=== PATIENT | female | born 1930 | race Caucasian/White ===

== ENCOUNTER 2016-10-26 08:46 | Observation (INO) | payer MEDICARE, OTHER ==
[~2016-10-26] VITALS: Ht 160 cm; Wt 78.6 kg
--- NOTE | ~2016-10-26 | DS ---
PATIENT'S NAME: CINDY PECK [facility] AGE: 85 Y [address] ROOM: [address] [address] LOCATION: GPCU ADMIT DATE: 10/26/2016 Discharge Summary DISCHARGE DATE: 10/27/2016 FAMILY PHYSICIAN: Alberto Fofana MD ATTENDING PHYSICIAN: Scott Aragon PRINCIPAL DIAGNOSES: 1. Hypertensive urgency. 2. Vertigo. 3. Paroxysmal atrial fibrillation. 4. CKD stage 3. HOSPITAL COURSE: This is an 85-year-old female, who lives in an assisted living facility presented to the emergency room with complaints of acute onset dizziness with the sensation of her room spinning around her head. The patient does have a history of vertigo except her last attack was about 10 years. The patient was also noted to have elevated blood pressure 200/100 at presentation. She was subsequently admitted for observation to manage her hypertensive urgency. The patient was given initially IV blood pressure medications and her home medications were resumed. The patient's blood pressure has responded nicely for that. The patient's blood pressure has been stable overnight and blood pressure currently is 104/56. The patient is currently asymptomatic. Did not complain of any dizziness or lightheadedness. No chest pain or shortness of breath. The patient was also initiated workup for a secondary hypertension. At this point, her blood pressure is already back to normal range. The patient will follow up with her primary care physician. Renal ultrasound duplex as well as urine metanephrines studies are pending. The patient will follow up with primary care physician. PHYSICAL EXAMINATION: VITAL SIGNS: Stable. GENERAL: The patient is awake, alert, and oriented x3, in no acute distress. HEART: S1, S2. Regular rate and rhythm. CHEST: Clear to auscultation bilaterally. ABDOMEN: Soft, nontender and nondistended. EXTREMITIES: Without edema. NEUROLOGIC: Nonfocal. MEDICATIONS: Per SEP. DISPOSITION: Back to assisted living facility and will follow up with primary care physician within a week. [facility] 85 Y [address] [address] [facility]ATION: [facility] ADMIT DATE: 10/26/2016 Discharge Summary DISCHARGE DATE: 10/27/2016 FAMILY PHYSICIAN: Alberto Fofana MD ATTENDING PHYSICIAN: Scott Aragon MD BG/modl /[id number] d: 10/28/16514 t: 10/30/16 1419, DISCHARGE SUMMARY
--- NOTE | ~2016-10-26 | HP ---
PATIENT'S NAME: NICK PECKTY Jas [facility] AGE: 85 Y [address] ROOM: [place] [address] LOCATION: GPCU ADMIT DATE: 10/26/2016 History & Physical DISCHARGE DATE: FAMILY PHYSICIAN: PHYSICIAN, UNKNOWN ATTENDING PHYSICIAN: JIM GLOVER DATE OF SERVICE: CHIEF COMPLAINT: Lightheadedness, which she describes as vertigo; and hard to control hypertension. HISTORY OF PRESENT ILLNESS: This is an 85-year-old female, who has a longstanding history of hypertension and hard to control, currently is on 3 medications. The patient lives in an assisted living facility and she states that the staff over there gives her the medication every single day without missing any dose. The story is that the patient woke up this morning with vertigo where she described as the room spinning around her head. Last time she felt like this was 10 years ago. The vertigo gets worse with movement, but she denies any headache, denies any blurry vision, denies any chest pain, denies any shortness of breath, denies any other symptoms. Because of this vertigo, the patient came to the emergency room for evaluation. At home, the patient usually checks her blood pressure twice a day and her numbers usually runs in the 150 to 180s in the systolic blood pressure. The patient says that she eats a healthy diet, is from the food that they prepare from the assisted living facility. She denies any increased salty intake. REVIEW OF SYSTEMS: As mentioned in the history of present illness. All other systems reviewed and negative except those mentioned in the history of present illness. PAST MEDICAL HISTORY: 1. Coronary artery disease status post drug-eluting stents placed about a year and half ago according to the patient in [facility]. She states she got one stent placed. Performed by Dr. Houston. 2. History of paroxysmal atrial fibrillation, on Xarelto. 3. Depression. 4. Hypertension. 5. 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 ALLERGIES: PENICILLIN, WHICH CAUSES RASH. HOME MEDICATIONS: PATIENT'S NAME: LIV CINDY Jas [facility] AGE: 85 Y [address] ROOM: [place] [address] LOCATION: GPCU ADMIT DATE: 10/26/2016 History & Physical DISCHARGE DATE: FAMILY PHYSICIAN: PHYSICIAN, UNKNOWN ATTENDING PHYSICIAN: JIM GLOVER 1. Tylenol 650 mg p.o. every 4 hours p.r.n. for pain or fever. 2. Tylenol 650 mg p.o. b.i.d. 3. Aspirin 81 mg p.o. daily. 4. Calcium carbonate and vitamin D3, 600 mg p.o. daily. 5. Vitamin D3, 2000 units every day. 6. Hydrochlorothiazide 25 mg p.o. daily. 7. Labetalol 200 mg p.o. b.i.d. 8. Losartan 100 mg p.o. daily. 9. Magnesium hydroxide 30 mL p.o. every day p.r.n. for constipation. 10. Nitroglycerin 0.4 mg sublingual every 5 minutes p.r.n. for chest pain. 11. Nortriptyline 50 mg p.o. every night at bedtime. 12. Olanzapine 2.5 mg p.o. every night at bedtime. 13. Prednisone 3 mg p.o. daily. She takes this for rheumatoid arthritis. 14. Xarelto 15 mg p.o. every night at bedtime. 15. Simvastatin 10 mg p.o. daily at bedtime. 16. Ursodiol 250 mg p.o. t.i.d. SOCIAL HISTORY: The patient is a former cigarette smoker, she quit in 1994, she used to smoke about half pack per day for 30 years. She is a social alcohol drinker. She denies any alcohol use disorder. She denies any illegal drug use. FAMILY HISTORY: Father from some kind of heart problem that she could not remember at advanced age. Mother also from heart problem, from a cause that the patient could not remember also at advanced age. PAST SURGICAL HISTORY: 1. Status post cholecystectomy. 2. Status post appendectomy. 3. Status post left hip surgery in the past. 4. Status post right shoulder surgery in the past. 5. Status post drug-eluting stent x1 to the heart a year and half ago. PHYSICAL EXAMINATION: VITAL SIGNS: At the time of my dictation; temperature 98, respirations 13, blood pressure 180/111, heart rate 62, and saturation 98% on room air. GENERAL APPEARANCE: Alert and oriented x3. In no acute distress. HEENT: Pupils equally round and reactive to light. Extraocular muscles are intact. Anicteric sclerae. Nasal turbinates are normal bilaterally. Moist oral mucosa. NECK: No JVD. CARDIOVASCULAR: Regular rate and rhythm. No murmur. No rubs. No gallops. RESPIRATORY: Some bibasilar crackles. Otherwise, clear to auscultation. ABDOMEN: Obese, soft, nontender, nondistended, normal bowel sounds, no PATIENT'S NAME: CINDY PECK [facility] AGE: 85 Y [address] ROOM: [address] [address] [facility]ATION: [facility] ADMIT DATE: 10/26/2016 History & Physical DISCHARGE DATE: FAMILY PHYSICIAN: PHYSICIAN, UNKNOWN ATTENDING PHYSICIAN: JIM GLOVER hepatosplenomegaly. EXTREMITIES: No edema in upper or lower extremities. NEUROLOGIC: Grossly nonfocal. LABORATORY DATA: Troponin less than 0.04. ProBNP 534. CPK 39. White blood cells 7.5, hemoglobin 9.5, hematocrit 31.4, MCV 91, and platelets 211. Glucose 98, BUN 30, creatinine 1.4, sodium 143, potassium 4.0, chloride 110, CO2 of 28, calcium 9.4, total protein 6.8, albumin 3.7, AST 8, ALT 18, alkaline phosphatase 63, total bilirubin 0.4, GFR 36, magnesium 1.9, INR 1.07, and CK- MB 0.8. IMAGING STUDY: 1. Chest x-ray on admission showed no evidence of acute cardiopulmonary disease. 2. CT of the head without contrast showed no acute intracranial pathology. Generalized atrophic changes. No skull fracture. 3. EKG on admission, the first one at 09:17 a.m., showed sinus rhythm, heart rate of [address] depression in anteroseptal leads. A repeat EKG at 10:18 a.m., showed a sinus rhythm, also with PAC, heart rate in the 50, ST depression in the anteroseptal leads has already resolved. EMERGENCY ROOM COURSE: In the emergency room, the patient received nitroglycerin drip, however, her heart rate went down from 70 to the 50s, therefore it was stopped. Nitroglycerin also gave the patient some headache. Therefore, the patient was given hydralazine 2 doses of 10 mg at a different time. ASSESSMENT AND PLAN: 1. Regarding her hypertensive urgency, the patient has been having this hypertension for a while. Therefore, per guideline, the goal would be lower the blood pressure, no more than 25% in the next 24 hours. Currently, there is no end-organ damage. She is asymptomatic right now. She denies any dizziness. EKG is normal. No chest pain. Blood work unremarkable except for chronic kidney disease stage III, around her baseline. I will check her blood pressure and heart rate every 2 hours and record in [facility], and use IV hydralazine 10 mg q.2 hours p.r.n. for systolic blood pressure more than 180 and use IV hydralazine p.r.n. 5 mg q.2 hours p.r.n. for systolic blood pressure more than 160. The goal should be around 150 to 160 in the next 24 hours. This is the ideal range. I will continue her home medication. She takes 3 medications. I will increase the hydrochlorothiazide to 50 mg instead of the 25 mg p.o. daily. Continue the other 2 medications including the labetalol and also losartan. I will do some workup for the secondary cause of the resistant hypertension given that she is on 3 medications, still quite PATIENT'S NAME: CINDY PECK [facility] AGE: 85 Y [address] ROOM: [place] [address] LOCATION: [facility] ADMIT DATE: 10/26/2016 History & Physical DISCHARGE DATE: FAMILY PHYSICIAN: PHYSICIAN, UNKNOWN ATTENDING PHYSICIAN: JIM GLOVER hypertensive. I will be checking a duplex ultrasound of the renal artery to rule out renal artery stenosis. I will also be checking a 24-hour urine, fractionated metanephrine and catecholamine, and serum fractionated metanephrine to screen for pheochromocytoma. Also will be checking a plasma aldosterone and renin ratio in the morning at 8 a.m. to rule out Conn syndrome. Continue cardiac diet. Fall precaution. Telemetry monitoring. Further plan depends on clinical course. Her home medication regimen could be increased and titrated as necessary. 2. Regarding her chronic kidney disease stage III to IV, she is around her baseline currently. Check another basic metabolic panel tomorrow morning. 3. Regarding her vertigo, I will give her meclizine 25 mg p.o. b.i.d. p.r.n. for vertigo. See how she responds. 4. Deep venous thrombosis prophylaxis. She is already on Xarelto. 5. Regarding her paroxysmal atrial fibrillation, continue Xarelto. Heart rate is already in the high 50s. Cardiac enzymes first set negative. There is no need to cycle. There is no chest pain. EKG not ischemic. Time spent in the care on the day of admission 35 minutes including chart review, interviewing the patient, examining the patient, addressing all the questions and concerns that the patient had, and going over the plan of care with the patient and nurses. MD LARON HUA/shanique /[id number] D: [id number] T: [id number] HISTORY & PHYSICAL
--- NOTE | ~2016-10-26 | ECHO ---
Transthoracic Echocardiography Report (TTE) Demographics Patient Name CINDY PECK Date of Study 10/27/2016 Patient Number [id number] Visit Number [id number] Date of 1930 Room Number G6320 Accession Number [id number] Gender Female Age 85 year(s) Referring Margo Herrera MD Well Flow Operator Shaw Lugo RDCS, Physician RVT Physician Interpreting Ciro Beltran Plant Pathology Teacher Physician Ruth MILLER Supervising Ordering Physician Margo Herrera MD, MD/P Nurse Stress Co Chairman Conclusions Contractility Score Summary Normal Left Ventricular contractility was noted. Summary The estimated left ventricular ejection fraction is 60%. Moderate concentric left ventricular hypertrophy. Diastolic assessment reveals Grade I diastolic dysfunction. Mild tricuspid regurgitation by color Doppler. There is moderate pulmonary hypertension. The pulmonary pressure (RVSP) is 44.94 mmHg. Procedure Type of Study TTE procedure:2D Echocardiogram. Procedure Date Date: 10/27/2016 Start: 08:42 AM Study Location: Inpatient Portable Technical Quality: Adequate visualization Indications:Dizziness and Hypertension. Additional Indications:EKG changes Appropriate Use Criteria: 9 Patient Status: Routine BP: 126/60 mmHg Allergies - No known allergies. M-Mode/2D Measurements LV Diastolic Dimension: 3.27 cm LV Systolic Dimension: 2.01 cm LV Septum Diastolic: 1.47 cm LV PW Diastolic: 1.21 cm LA Dimension: 4.5 cm RV Diastolic Dimension: 3.64 cm LA volume: 56 ml LVOT: 2 cm RV Base: 3.28 cm LVOT VTI: 28.4 cm RV Mid: 3.05 cm LV Stroke volume: 89.18 ml TAPSE: 2.03 cm TDI-S': 14.6 cm/s Doppler Measurements AV Peak Velocity: 1.51 m/s MV Peak E-Wave: 0.75 m/s AV Peak Gradient: 9.12 mmHg MV Peak A-Wave: 1.2 m/s AV Mean Gradient: 5 mmHg MV E/A Ratio: 0.62 LVOT Peak Velocity: 1.26 m/s MV Deceleration Time: 461 msec TR Velocity:3.16 m/s PV Peak Velocity: 1.4 m/s TR Gradient:39.94 mmHg PV Peak Gradient: 7.84 mmHg Estimated RAP:5 mmHg Estimated PASP: 44.94 mmHg Estimated RVSP: 45 mmHg A' Septal Velocity: 0.1 m/s E' Septal Velocity: 0.06 m/s A' Lateral Velocity: 0.08 m/s E' Lateral Velocity: 0.05 m/s Findings Left Ventricle Moderate concentric left ventricular hypertrophy. Diastolic assessment reveals Grade I diastolic dysfunction. Right Ventricle Normal right ventricle structure and function. Left Atrium The left atrium is mildly to moderately dilated by LA volume index measurement. Right Atrium Normal right atrial size. Redundant interatrial septum. Mitral Valve Trivial mitral regurgitation by color Doppler. Mild thickening of the mitral valve leaflets. Aortic Valve Normal aortic valve structure and function. Tricuspid Valve Mild tricuspid regurgitation by color Doppler. There is moderate pulmonary hypertension. The pulmonary pressure (RVSP) is 44.94 mmHg. Pulmonic Valve Normal pulmonic valve structure and function. Pericardial Effusion No evidence of pericardial effusion. Miscellaneous Visualized portions of the aortic root and ascending aorta appear normal in size. Pleural Effusion No evidence of pleural effusion. Contractility Score LV regional wall motion:(0-Non visualized 1-Normal 2-Hypokinesis 3-Akinesis 4-Dyskinesis 5-Aneurysm) Signature dtt: Matt Tanner dtd: 10/27/16 0842 Physician Self Edit
--- NOTE | ~2016-10-26 | CON ---
PATIENT'S NAME: CINDY PECK [facility] AGE: 85 Y [address] ROOM: [address] [place], [place] [address] LOCATION: GPCU ADMIT DATE: 10/26/2016 Consultation DISCHARGE DATE: 10/27/2016 FAMILY PHYSICIAN: Alberto Fofana MD ATTENDING PHYSICIAN: Scott Aragon DATE OF CONSULTATION: 10/27/2016 REFERRING PHYSICIAN: Matt Tanner MD REASON FOR CARDIOLOGY CONSULT: Resistant hypertension. HISTORY OF PRESENT ILLNESS: This is an 85-year-old female of Dr. Christos Fofana as her primary care provider. She resides at the [facility] and awoke the morning of 10/26/2016 with complaints of dizziness and "spinning." She had no other symptoms during her spinning episode. She denies chest pain, shortness of breath, dyspnea on exertion, palpitations, nausea, and vomiting. Assessment of her vital signs at the [facility] showed overt hypertension, and she was transferred to the emergency department for further evaluation. The emergency department found her to have a systolic blood pressure in the 200s. She was subsequently started on clonidine and hydralazine. She normally manages her hypertension poorly at home with Cozaar, hydrochlorothiazide, and labetalol. She states her blood pressures normally run between 150 and 180. She has a previous history, which includes coronary artery disease with a bare-metal stent placed to her RCA in 2014 and is currently taking aspirin and statin with no complaints of angina. She also has a history of paroxysmal atrial fibrillation, for which she is anticoagulated with Xarelto and is currently in a sinus rhythm on her monitoring manager during this consultation. She is currently resting comfortably in bed with no complaints and states she feels "fine." She appears to be in no acute distress at this time. PAST MEDICAL HISTORY: 1. Coronary artery disease with coronary artery stenting with a bare-metal stent to her RCA. This was placed [place] [address] Knott at [facility]. She states she has not followed up with a hearing aid mechanic since her stent placement. 2. Paroxysmal atrial fibrillation with long-term anticoagulation with Xarelto. 3. Hypertension. 4. Chronic kidney disease. 5. Depression. FAMILY HISTORY: PATIENT'S NAME: LIV [facility] AGE: 85 Y [address] ROOM: [address] [place], [place] [address] LOCATION: GPCU ADMIT DATE: 10/26/2016 Consultation DISCHARGE DATE: 10/27/2016 FAMILY PHYSICIAN: Alberto Fofana MD ATTENDING PHYSICIAN: Scott Aragon She states that her father had heart diagnosis but is not sure what it actually was. Her mother also had a heart disease, but she is unsure of the specific diagnosis. SOCIAL HISTORY: The patient is a former cigarette smoker. She smoked half a pack per day for a total of 30 years and quit smoking in 1994. She does admit to alcohol use on a social basis. She denies illicit drug use. CURRENT MEDICATIONS: 1. Actigall 300 mg p.o. 3 times daily. 2. Aspirin 81 mg p.o. daily. 3. Catapres 0.2 mg p.o. twice daily. 4. Deltasone 3 mg p.o. daily. 5. Hydrochlorothiazide 50 mg p.o. daily. 6. Pamelor 50 mg p.o. daily in the evening. 7. Labetalol 200 mg p.o. twice daily. 8. Tylenol Extra Strength 1000 mg p.o. 3 times daily. 9. Xarelto 15 mg p.o. daily in the evening. 10. Zocor 10 mg p.o. daily in the evening. 11. Zyprexa 2.5 mg p.o. daily in the evening. MEDICATION ALLERGIES: Penicillin causing rash. REVIEW OF SYSTEMS: Pertinent positive review of systems listed in the HPI, and all other review of systems evaluated and negative. DIAGNOSTICS: CMS evaluation shows sodium of 142, potassium 4.6, BUN of 29, creatinine 1.6, glucose of 104. Cardiac enzyme evaluation shows a CPK of 36, CK-MB of 0.8, and troponin I of less than 0.04. She has a proBNP of 534. Hemoglobin and hematocrit of 9.5 and 31.4 respectively. Echocardiogram shows an estimated left ventricular ejection fraction of 60% with a grade 1 diastolic dysfunction. She has mild tricuspid regurgitation and moderate pulmonary hypertension with an RVSP of 44.94 mmHg. PHYSICAL EXAMINATION: VITAL SIGNS: Temperature 97.9, pulse 62, respirations 21, blood pressure 129/60, O2 saturation 93% on room air. The patient weighs 78.6 kg. SKIN: [place], warm, and dry. EYES: Sclerae clear. No xanthelasmas. ENT: Oral mucosa is pink and moist. No jugular venous distention noted. PATIENT'S NAME: CINDY PECK [facility] AGE: 85 Y [address] ROOM: [place] [address] LOCATION: GPCU ADMIT DATE: 10/26/2016 Consultation DISCHARGE DATE: 10/27/2016 FAMILY PHYSICIAN: Alberto Fofana MD ATTENDING PHYSICIAN: Scott Aragon Does have the presence of bilateral carotid bruits. CHEST: Respirations are even and unlabored. LUNGS: Clear to auscultation. HEART: Regular rate and rhythm. Normal S1, S2. No murmurs, rubs, or gallops. ABDOMEN: Soft, nontender. MUSCULOSKELETAL: Gait is normal. EXTREMITIES: Peripheral pulses palpable. No clubbing, cyanosis, or edema. There is also no presence of femoral bruits. PSYCH: Alert and oriented. Mood and affect are appropriate. IMPRESSION AND PLAN: Per Dr. Tanner: 1. Coronary artery disease of the [place] artery without angina. She has a history of a bare-metal stent to the RCA in 2015, and her cardiac enzymes are currently negative as well as her EKG being negative for any acute ST changes suggestive of acute coronary ischemia. She is currently on guideline-directed medical therapy, and we will continue that. 2. Hypertensive urgency with a baseline resistant hypertension, currently resolved with her clonidine and hydralazine regimen. Her echocardiogram appears stable. She appears in a stable condition to be discharged if necessary today and follow up closely with her primary care provider as well as reestablishing care with her previous cardiology provider. 3. Chronic kidney disease. 4. Vertigo has currently resolved with meclizine. Thank you for this consult. Thank you for allowing [facility] to interact in the care of the patient. CORBY LAU APRN FOR [employer]-MD JENNI CARMONA/shanique /[id number] d: 10/27/16 2238 t: 11/01/16 1048, CONSULTATION REPORT
--- NOTE | ~2016-10-26 | ER ---
PATIENT'S NAME: NICK PECKTY Jas [facility] AGE: 85 Y [address] ROOM: [place] [address] LOCATION: GPCU ADMIT DATE: 10/26/2016 ER/Outpatient Report DISCHARGE DATE: FAMILY PHYSICIAN: PHYSICIAN, UNKNOWN ATTENDING PHYSICIAN: JIM GLOVER Time of Arrival: 0846 hours. Time of Evaluation: 0920 hours. IDENTIFICATION: An 85-year-old female. CHIEF COMPLAINT: Blood pressure problems. HISTORY OF PRESENT ILLNESS: The patient is an 85-year-old female, who comes from an assisted living facility complaining of weakness and vertigo. She said that she woke up this morning and everything was spinning. She has felt dizzy and lightheaded but more of spinning sensation. Rosalinda Alicia noted that her blood pressure was elevated at 199/75, so she was sent to [facility] by EMS. ALLERGIES: PENICILLIN. CURRENT MEDICATIONS: 1. Aspirin 81 mg daily. 2. Losartan 100 mg daily. 3. Calcium 600 mg with vitamin D daily. 4. Vitamin D 2000 International Units daily. 5. Prednisone 3 mg daily. 6. Xarelto 15 mg at h.s. 7. Hydrochlorothiazide 25 mg in the morning. 8. Ursodiol 250 mg t.i.d. 9. Tylenol 650 mg b.i.d. 10. Simvastatin 10 mg at h.s. 11. Nortriptyline 50 mg at h.s. 12. Zyprexa 2.5 mg at h.s. 13. Labetalol 200 mg b.i.d., hold if heart rate less than 55. 14. P.r.n. medications:. a. Tylenol. b. Milk of magnesia. c. Nitrostat. MEDICAL PROBLEMS: [facility] 85 [facility] [address] ROOM: [place] [address] LOCATION: GPCU ADMIT DATE: 10/26/2016 ER/Outpatient Report DISCHARGE DATE: FAMILY PHYSICIAN: PHYSICIAN, UNKNOWN ATTENDING PHYSICIAN: JIM GLOVER Hypertension, coronary artery disease, paroxysmal atrial fibrillation, primary sclerosing cholangitis, polymyalgia rheumatica, chronic iron deficiency anemia, hyperlipidemia, osteopenia, chronic kidney disease. PRIOR SURGERIES: Liver biopsy, stent placement, left total hip replacement, shoulder surgery, appendectomy, cholecystectomy, and breast biopsy. SOCIAL HISTORY: The patient lives at [facility]. Tobacco use, denies. Alcohol use, denies. Drug use, denies. FAMILY HISTORY: Mother from Parkinson's disease. Father had heart disease at a young age. REVIEW OF SYSTEMS: All systems were reviewed and negative other than what is noted in the HPI, particularly the patient denies any headache. She has no chest pain. No cough or shortness of breath. PHYSICAL EXAMINATION: VITAL SIGNS: Height 5 feet 3 inches, weight 78.6 kg, blood pressure 222/94, pulse 54, respirations 18, temperature 98.6, and saturations 95%. GENERAL: An 85-year-old female, in no acute distress. HEENT: Head: Normocephalic, atraumatic. Pupils equal, and reactive to light and accommodation. Extraocular movements intact. Nose: Mucosa pink. No lesions. Mouth: No lesions. Pharynx benign. NECK: Supple. No lymphadenopathy. LUNGS: Clear to auscultation. HEART: Sinus bradycardia. ABDOMEN: Soft, nondistended, nontender. SKIN: Bone Gap, warm, and dry. No lesions or rashes noted. NEURO: No focal deficit. No lower extremity edema. EMERGENCY DEPARTMENT COURSE: An IV was initiated. LABORATORY DATA AND X-RAYS: Sodium 143, potassium 4.0, chloride 110, CO2 of 28, BUN 30, creatinine 1.4, blood sugar 98. Liver enzymes normal. Magnesium 1.9. CPK 39, CK-MB 0.8, troponin I less than 0.040, ProBNP elevated at 534. INR 1.07. Hemoglobin 9.5, hematocrit 31.4, platelets 211, white count 7.5, hemoglobin was 9.6 in January 2016 so it is stable. PATIENT'S NAME: [facility] CINDY [facility] AGE: 85 Y [address] ROOM: [id number] [place], [place] [address] [facility] ADMIT DATE: 10/26/2016 ER/Outpatient Report DISCHARGE DATE: FAMILY PHYSICIAN: PHYSICIAN, UNKNOWN ATTENDING PHYSICIAN: JIM GLOVER EKG at 9:17, sinus bradycardia at [address] depression noted in V2 to V4. Repeat EKG at 10:18, sinus bradycardia at [address] depression in V2 to V3 has improved compared to earlier EKG. The patient does have a POLST form. Do not resuscitate. Limited interventions, and the patient is competent to make her own decisions. One- view chest x-ray, no acute process. Left basilar scarring, stable, pending Radiology over-read. Head CT without contrast, no acute findings. Pending Radiology over-read. IMPRESSION: 1. Vertigo. 2. Hypertensive urgency. 3. Bradycardia. 4. Ischemic EKG changes. 5. Chronic kidney disease, creatinine of 1.4. PLAN: In the emergency room, an IV had been initiated. The patient was started on a nitro drip per protocol to treat her blood pressure. The EKG changes improved, the blood pressure did not change, and her heart rate decreased to 46. The nitro drip was discontinued. Hydralazine 10 mg IV was given x2 with improvement of her blood pressure. She remained asymptomatic throughout this time with no chest pain, no shortness of breath, blood pressure improved to 181/67, 158/80, and she was admitted by Dr. Glover, who evaluated her in the emergency room, and as a nitro drip was discontinued, her heart rate improved back to the 50s. TOMY GRACE MD CAR/modl /[id number] d: 10/27/160 t: 10/27/16 0800, OUTPATIENT REPORT
[~2016-10-26 08:46] MED LIST changes: -HYDRODIURIL25 MG PO; -MECLIZINE HCL25 MG PO; -NORTRIPTYLINE H50 MG PO; -NORVASC10 MG PO; -PREDNISONE1 MG PO
[2016-10-26 09:48] LABS: BASOPHIL % 0.5 %; EOSINOPHIL # 0.3 K/uL (0.0-0.5); EOSINOPHIL % 3.3 %; HEMATOCRIT 31.4 % (30.0-46.0); HEMOGLOBIN 9.5 g/dL (10.0-15.0); IMMATURE GRANULOCYTE % 0.1 %; LYMPHOCYTE # 0.8 K/uL (0.8-4.0); LYMPHOCYTE % 10.8 %; MCH 27.5 pg (27.0-34.0); MCHC 30.3 gm/dL (32.0-36.5); MONOCYTE # 0.6 K/uL (0.0-1.0); MONOCYTE % 7.5 %; NEUTROPHIL # (ANC) 5.8 K/uL (1.8-7.8); NEUTROPHIL % 77.8 %; NRBC % 0 /100WBC (0-0.00); PLATELET COUNT 211 K/uL (150-450); RBC 3.45 M/uL (3.00-5.00); RDW-CV 15.3 % (11.9-14.6); WBC 7.5 K/uL (4.0-11.0)
[2016-10-26 09:58] LABS: INR - (THERAPEUTIC) 1.07 (0.92-1.07); PROTIME 11.2 SECONDS (9.8-11.4)
[2016-10-26 10:04] LABS: ALBUMIN 3.7 gm/dL (3.5-5.0); CALCIUM 9.4 mg/dL (8.5-10.5); CREATININE 1.4 mg/dL (0.5-1.1); TOTAL BILIRUBIN 0.4 mg/dL (0.0-1.5); TOTAL PROTEIN 6.8 g/dL (6.0-8.4)
[2016-10-26 10:07] LABS: CPK 39 IU/L (21-215); MAGNESIUM 1.9 mg/dL (1.8-2.6)
[2016-10-26] MEDS ORDERED: HYDRODIURIL25 MG PO (14:18)
[2016-10-26] MEDS ORDERED: TYLENOL325 MG PO (14:19)
[2016-10-26] MEDS ORDERED: NORTRIPTYLINE H50 MG PO (14:20)
[2016-10-26] MEDS ORDERED: PREDNISONE1 MG PO (14:22)
--- NOTE | 2016-10-26 16:38 | NUR ---
Patient is 85 yo female admitted from the ER. is a resident at the [facility]. ambulance was called for patient dizziness this am. patient has hx of HTN and AFib and dizziness. IV is infusing in right hand without erythema or edema noted at site. patient denies c/o at this time except headache, states she was given nitro in ER. does c/o dizziness. 16 Fr Stroud is inserted with some difficulty by AMISHA Wellington with assist. pt is very excoriated in her inner perineal area, education is given as documented. patient denies questions at this time. pneumatics are on bilat calves. patient call light is Modumetal reach. Report is given to AMISHA Wellington.
--- NOTE | 2016-10-26 19:51 | NUR ---
Significant Event: A/O x3, cooperative with cares. SBPs 200s, doctor is aware; HRs 50-70s, on room air. Hydralazine 10 mg given at 1604 for SBP 206. C/O headache; 2 mg of IV morphine given at 1605 with mild relief noted. Up to BS with assist of 2; patient c/o feeling dizzy et if room was spinning. Stroud placed at 1630; draining light yellow urine. Follow up: NPO after midnight for renal ultrasound. 24 hour urine collection started at 1630 for special urine testing; complete at 1630 tomorrow.
--- NOTE | 2016-10-27 04:54 | NUR ---
Significant event: A/O x 3. recieved orders for po clonidine, IV enalaprilat and increased doses of hydralazine. SBP are now in the low 100's. There is also an order for a cardiology consult, echo and ekg for this am. Stroud is intact with 850ml of UOP.
[2016-10-27 08:22] LABS: ANION GAP 12.6 (10.0-19.0); CALCIUM 9.2 mg/dL (8.5-10.5); CREATININE 1.6 mg/dL (0.5-1.1); POTASSIUM 4.6 mMol/L (3.7-5.1)
[2016-10-27 08:32] LABS: CPK 36 IU/L (21-215)
--- NOTE | 2016-10-27 12:39 | NUR ---
Introduced self and role of care management to patient. She lives at [facility]. She states that she is able to do all her own ADL." The staff do help her put on and takae off her dorian hose. She plans on returning to the [facility] on discharge. I did call and speak with Malissa to update her that patient has discharge orders for today. They will pick her up this afternoon.
[2016-10-27] MEDS ORDERED: MECLIZINE HCL25 MG PO (14:37)
--- NOTE | 2016-10-27 20:37 | NUR ---
Significant Event: A/O x3, cooperative with cares. VSS, SBPs 100s-120s, HRs 50-60s, on room air. No c/o pain or dizziness. Echo et renal artery duplex today; no report as of this time. Maximus blackman'd; up to bathroom with assist of 1. Dismissal instructions given to patient. Dismissed to front lobby per w/c accompanied by assisted living staff. Follow up:
== END 2016-10-27 14:45 | disposition disaster alternative care site (69) ==
LOC: GMED 08:46 → GPCU 14:01
PROVIDERS: Family Medicine; ADMIT Internal Medicine
DX: I16.0 Hypertensive urgency (principal); I12.9 Hypertensive chronic kidney disease with stage 1 through stage 4 chronic kidney disease, or unspecified chronic kidney disease; N18.4 Chronic kidney disease, stage 4 (severe); R42 Dizziness and giddiness; I48.0 Paroxysmal atrial fibrillation; I25.10 Atherosclerotic heart disease of native coronary artery without angina pectoris; Z87.891 Personal history of nicotine dependence; Z88.0 Allergy status to penicillin; Z90.49 Acquired absence of other specified parts of digestive tract; Z98.890 Other specified postprocedural states; Z79.82 Long term (current) use of aspirin; Z79.51 Long term (current) use of inhaled steroids; Z79.899 Other long term (current) drug therapy
CPT/HCPCS: G0378; J0360; J2270; J2405; J3010; J7030

== ENCOUNTER → 2016-10-26 | Outpatient (CLI) | payer MEDICARE, OTHER ==
[~2016-10-26] MED LIST: APRESOLINE50 MG PO; ARICEPT5 MG PO; ASPIR 8181 MG PO; CALCIUM 600 +1 EAC3 PO; COLACE100 MG PO; COZAAR100 MG PO; DELTASONE1 MG PO; DEPAKOTE DELAY500 MG PO; DULCOLAX10 MG R; EFFEXOR XR 3737.5 MG PO; FEOSOL325 MG PO; FISH OIL1000 MG PO; HYDROCHLOROTHIA25 MG PO; HYDRODIURIL25 MG PO; KEFLEX500 MG PO; LABETALOL HCL200 MG PO; MECLIZINE HCL25 MG PO; MEGACE SUSP40 MG/ML PO; MILK OF MA400 MG/5 M PO; MIRALAX17 GM PO; NAMENDA5 MG PO; NITROSTAT0.4 MG SL; NORTRIPTYLINE H50 MG PO; NORVASC10 MG PO; NORVASC5 MG PO; PREDNISONE1 MG PO; SENNA S TABLET1 EACH PO; SENOKOT S (S1 TABLET PO; TYLENOL325 MG PO; URSODIOL250 MG PO; VITAMIN D2000 UNIT PO; XARELTO15 MG PO; ZOCOR10 M1 PO; ZOFRAN4 MG PO; ZYPREXA2.5 MG PO; [UNRECOGNIZED DRUG - OTHER] PO
== END | disposition disaster alternative care site (69) ==
LOC: GAMB 08:23
DX: R53.1 Weakness (principal); I10 Essential (primary) hypertension; R42 Dizziness and giddiness
CPT/HCPCS: A0425; A0427

== ENCOUNTER 2016-10-28 07:03 | Inpatient (IN) | payer MEDICARE, OTHER ==
[~2016-10-28] VITALS: Ht 160 cm; Wt 81.2 kg
--- NOTE | ~2016-10-28 | ER ---
PATIENT'S NAME: [facility] CINDY Jas [facility] AGE: 85 Y [address] ROOM: [place] [address] LOCATION: [facility] ADMIT DATE: 10/28/2016 ER/Outpatient Report DISCHARGE DATE: FAMILY PHYSICIAN: Alberto Fofana MD ATTENDING PHYSICIAN: Edd Rome Time of Arrival: Admission date and time documented on the medical record. Time of Evaluation: I saw the patient at 0715 hours. CHIEF COMPLAINT: Lightheadedness, dizziness, and weakness. HISTORY OF PRESENT ILLNESS: The patient is an 85-year-old female, who lives at [facility], was brought to the emergency room by paramedics via ambulance for evaluation. Her main complaint is lightheadedness, dizziness. She denies vertigo. Denies headache or eyes, ears, nose, throat, neck, or spine pain. No fall or trauma. She feels like she is okay when she is lying down, but when she sits up or changes positions, gets really lightheaded. Blood pressure is stable. The patient just got out of the hospital yesterday. She was hospitalized for hypertensive urgency and vertigo. She is on Antivert; was given Antivert just prior to transfer to the emergency department. The patient denies any chest pain, shortness of breath, or abdominal pain. No nausea, vomiting, diarrhea, urinary frequency or urgency, or dysuria. She is not having any joint/muscle swelling, redness, or pain or skin eruptions. No history of endocrine problems. She does have depression with some element of anxiety, but no psychosis. No neuro changes. HOME MEDICATIONS: See attached medication list. ALLERGIES: PENICILLIN. SOCIAL HISTORY: Nonsmoker, nondrinker. SIGNIFICANT PAST MEDICAL HISTORY: Atherosclerotic ischemic heart disease with coronary artery disease, diverticulosis, hemorrhoids, hypertension, vertigo, paroxysmal atrial fibrillation, chronic kidney disease, chronic anticoagulation with Xarelto, polymyalgia rheumatica, iron deficiency anemia, dyslipidemia, osteopenia, degenerative joint disease, degenerative osteoarthritis, primary sclerosing cholangitis, depression, and anxiety. PATIENT'S NAME: [facility] AGE: 85 Y [address] ROOM: [place] [address] LOCATION: ED ADMIT DATE: 10/28/2016 ER/Outpatient Report DISCHARGE DATE: FAMILY PHYSICIAN: Alberto Fofana MD ATTENDING PHYSICIAN: Edd Rome OPERATIONS: Breast biopsy, shoulder surgery, liver biopsy, colonoscopy, left total hip arthroplasty, appendectomy, and cholecystectomy. REVIEW OF SYSTEMS: All systems reviewed by me are negative with the exception of those discussed in the history of present illness. PHYSICAL EXAMINATION: VITAL SIGNS: Temperature 97.9, tympanic; pulse 60; respirations 16; blood pressure 121/56; and O2 saturation on room air is 91%. HEAD: Normocephalic. EYES, EARS, NOSE, AND THROAT: Clear. Mucous membranes are a little dry. NECK: No nuchal rigidity. No thyromegaly or cervical adenopathy. LUNGS: Clear. No rales, rhonchi, or wheezes. HEART: Regular. Pulses palpable. ABDOMEN: Soft, nondistended, nontender. Good bowel tones. No organomegaly or abnormal mass palpable. EXTREMITIES: Without peripheral edema, cyanosis, or deformity. NEUROVASCULAR: Intact. SKIN: Clear. No skin eruptions or rash. DIAGNOSTIC DATA: EKG showed sinus arrhythmia. No acute ST elevation or ischemic change. LABORATORY DATA: White count was 6900, 75 segs, 10 lymphs, 12 monos, 2 eos; hemoglobin was 9.1 with hematocrit 30.1; platelet count was 244,000. Sedimentation rate was 23. Protime was 12.9 with an INR of 1.23. Lactate was 1.3. CPK was 129, CK-MB was 2.9, troponin was 0.086. CRP was less than 0.29. TSH was 3.33. CMS was normal except for an elevated BUN of 45, elevated creatinine 3.5, low GFR at 12, procalcitonin was 0.11. EMERGENCY DEPARTMENT COURSE: I did start the patient on some IV normal saline fluids. IMPRESSION: 1. Txrbh-fj-bfbrcph kidney disease with a creatinine of 3.5, BUN of 45, GFR of 12. Her creatinine has elevated from 1.4 to 1.6 to 3.5 today. BUN has been running in the mid 30s, it is now 45. GFR has been running in the mid 30s to high 30s and now it has dropped down to 12. 2. Hypertension, controlled. 3. Paroxysmal atrial fibrillation with chronic anticoagulation using Xarelto. 4. Atherosclerotic ischemic heart disease with coronary artery disease. PATIENT'S NAME: CINDY PECK [facility] AGE: 85 Y [address] ROOM: [place] [address] LOCATION: [facility] ADMIT DATE: 10/28/2016 ER/Outpatient Report DISCHARGE DATE: FAMILY PHYSICIAN: Alberto Fofana MD ATTENDING PHYSICIAN: Edd Rome 5. Iron deficiency anemia. Hemoglobin 9.1. 6. Dyslipidemia. PLAN: Discussed the patient with Dr. Aragon, hospitalist. We will admit the patient to Med/Surg for further evaluation and treatment. Discussion ensued with the patient concerning my findings and recommendations, she understands. EDD ROME MD SDS/modl /[id number] d: 10/28/1608 t: 10/29/16 0617, OUTPATIENT REPORT
--- NOTE | ~2016-10-28 | HP ---
PATIENT'S NAME: CINDY PECK [facility] AGE: 85 Y [address] ROOM: [place] [address] LOCATION: [facility] ADMIT DATE: 10/28/2016 History & Physical DISCHARGE DATE: FAMILY PHYSICIAN: Alberto Fofana MD ATTENDING PHYSICIAN: JIM GLOVER DATE OF SERVICE: CHIEF COMPLAINT: Lightheadedness, and WES on CKD stage 3. HISTORY OF PRESENT ILLNESS: This is an 85-year-old female who was just discharged here from the hospital yesterday for hypertensive urgency and a sensation of vertigo. The patient was discharged yesterday back to correction. The patient was feeling well. The patient, however, states that for the last few days, she has been having poor appetite, and yesterday, when she went back home, she has not eaten or drunk much fluid. She also says that there might be some decreased urine output yesterday and today. No fall. She denies chest pain, shortness of breath, or headache. This morning, when she tried to get up from the bed, she felt lightheaded, but she did not fall. Because of the dizziness, the patient was brought here for evaluation. REVIEW OF SYSTEMS: As mentioned in the History of Present Illness. All other systems reviewed and negative except those mentioned in the History of Present Illness. PAST MEDICAL HISTORY: 1. CKD, stage 3. Baseline creatinine 1 to 1.3, and baseline GFR around 40s. 2. Hypertension. 3. Coronary artery disease, status post drug-eluting stent placed about a year and a half ago in [facility], according to the patient. 4. Depression. 5. History of paroxysmal atrial fibrillation, on Xarelto. ALLERGIES: PENICILLIN WHICH CAUSES RASH. HOME MEDICATIONS: 1. Ursodiol 250 mg p.o. t.i.d. 2. Tylenol 650 mg p.o. b.i.d. 3. Labetalol 200 mg p.o. b.i.d. 4. Simvastatin 10 mg p.o. every evening. 5. Nortriptyline 50 mg p.o. at bedtime. PATIENT'S NAME: CINDY PECK [facility] AGE: 85 Y [address] ROOM: [place] [id number] LOCATION: [facility] ADMIT DATE: 10/28/2016 History & Physical DISCHARGE DATE: FAMILY PHYSICIAN: Alberto Fofana MD ATTENDING PHYSICIAN: JIM GLOVER 6. Zyprexa 2.5 mg p.o. every night at bedtime. 7. Aspirin 81 mg p.o. daily. 8. Losartan 100 mg p.o. daily. 9. Calcium 600 mg p.o. daily supplement with vitamin D. 10. Vitamin D 2000 units p.o. daily. 11. Prednisone 4 mg p.o. daily. 12. Xarelto 15 mg p.o. at bedtime. 13. Hydrochlorothiazide 25 mg p.o. in the morning. 14. Nitroglycerin 0.4 mg sublingual every 5 minutes p.r.n. for chest pain. 15. Meclizine 25 mg p.o. every 8 hours p.r.n. for dizziness. 16. Tylenol 325 mg p.o. every 4 hours p.r.n. for pain or fever. SOCIAL HISTORY: The patient was a former cigarette smoker, she quit in 1994. She used to smoke about half a pack per day for 30 years. She is a social alcohol drinker. Denies any alcohol use disorder. She denies any illegal drug use. FAMILY HISTORY: Father from some kind of a heart problem that she could not remember. Mother also from some kind of heart problem, also from a cause that she could not remember. Both at advanced age. PAST SURGICAL HISTORY: 1. Status post cholecystectomy. 2. Status post appendectomy. 3. Status post left hip surgery in the past. 4. Status post right shoulder surgery in the past. 5. Status post drug-eluting stent x1 placed in the heart about a year and a half ago. PHYSICAL EXAMINATION: VITAL SIGNS: At the time of my dictation, temperature 97, heart rate 61, blood pressure 145/62, saturation 100% on room air, pain 0/10, and respirations 14. GENERAL APPEARANCE: Alert and oriented x3, in no acute distress. HEENT: Pupils are equally round and reactive to light. Extraocular muscles intact. Anicteric sclerae. Nasal turbinates are normal bilaterally. Moist oral mucosa. NECK: No JVD. CARDIOVASCULAR: Regular rate and rhythm. No murmur. No rubs. No gallops. RESPIRATORY: Some bibasilar crackles. Otherwise, clear. ABDOMEN: Obese, soft, nontender, and nondistended. Normal bowel sounds. No hepatosplenomegaly. EXTREMITIES: No edema in the upper or lower extremities. NEUROLOGICAL: Grossly nonfocal. PATIENT'S NAME: CINDY PECK [facility] AGE: 85 Y [address] ROOM: [place] [address] LOCATION: [facility] ADMIT DATE: 10/28/2016 History & Physical DISCHARGE DATE: FAMILY PHYSICIAN: Alberto Fofana MD ATTENDING PHYSICIAN: JIM GLOVER LABORATORY DATA: Lactic acid 1.3. CPK 129 and troponin 0.086. White blood cells 6.9, hemoglobin 9.1, hematocrit 30.1, MCV 92.3, and platelet 244. Glucose 96, BUN 45, creatinine 3.5, sodium 141, potassium 3.9, chloride 108, CO2 of 24, and calcium 8.7. Total protein 6.6. Albumin 3.6. AST 12, ALT 14, and alkaline phosphatase 61. Total bilirubin 0.3. GFR 12. Anion gap 12.9. ESR 23. INR 1.23. CK-MB 2.9. TSH 3.330. Procalcitonin 0.11. IMAGING STUDIES: EKG on admission showed heart rate of 56 with sinus arrhythmia and QRS 100, UT 135, and QTc 437. No ST elevation or depression. ASSESSMENT AND PLAN: 1. Regarding her acute kidney injury on chronic kidney disease, stage 3: Likely secondary to decreased oral intake in the setting of using losartan at home. We will hydrate her with IV normal saline bolus 2 L and then follow by 125 mL/hour. Place a Stroud catheter for urine output. Strict in's and out's and daily weights. Check urine electrolytes. I will not repeat kidney ultrasound because she just had ultrasound done yesterday, and it was unremarkable. Increase oral intake. Can have a cardiac diet. Further plan depends on clinical course. 2. Regarding her vertigo: I will start her on the meclizine 25 mg standing dose with 4 times a day. Further plan depends on clinical course. The patient does get relief with this medication. Likely, she also has benign positional paroxysmal vertigo. Also, could be from the dehydration from the orthostatic vital signs. 3. Regarding her coronary artery disease, status post drug-eluting stent placed in the past: No active issue. No chest pain. EKG not ischemic. Continue home medication. 4. Regarding her paroxysmal atrial fibrillation: Currently, in sinus rhythm. Continue Xarelto. 5. Regarding her hypertension: Obviously, in the setting of acute kidney injury on chronic kidney disease, we will hold off on the losartan. I will also stop the hydrochlorothiazide. We will give her IV hydralazine p.r.n., IV labetalol p.r.n., p.o. amlodipine 10 mg every morning, and p.o. hydralazine 10 mg 4 times a day and titrate as necessary. 6. Regarding her troponin elevation: No chest pain. EKG not ischemic. This is likely from the WES on CKD. Cycle cardiac enzymes every 6 hours. 7. Deep venous thrombosis prophylaxis: The patient will be on heparin subcu 3 times a day. Time spent in care on the day of admission is 30 minutes including chart review, interviewing the patient, examining the patient, addressing all the questions and concerns that the patient had, and going over the plan of care with the patient and the nurses. PATIENT'S NAME: CINDY PECK [facility] AGE: 85 Y [address] ROOM: [place] [address] LOCATION: [facility] ADMIT DATE: 10/28/2016 History & Physical DISCHARGE DATE: FAMILY PHYSICIAN: Alberto Fofana MD ATTENDING PHYSICIAN: JIM GLOVER JIM GLOVER MD CC/modl /[id number] D: 336 T: 232 HISTORY & PHYSICAL
--- NOTE | ~2016-10-28 | DS ---
PATIENT'S NAME: CINDY REYES [facility] AGE: 85 Y [address] ROOM: [address] [place] [address] [place] [facility] ADMIT DATE: 10/30/2016 Discharge Summary DISCHARGE DATE: 11/01/2016 FAMILY PHYSICIAN: Alberto Fofana MD ATTENDING PHYSICIAN: Scott Aragon ATTENDING PHYSICIAN ON THE DAY OF DISCHARGE: Dr. Talavera. CONSULTING PHYSICIAN: Dr. Philippe, Psychiatry. DISCHARGE DIAGNOSES: 1. Acute kidney injury, resolved. 2. Major depressive disorder, recurrent. 3. Hypertension. 4. Paroxysmal atrial fibrillation. 5. Hypokalemia, resolved. 6. Hypomagnesemia, replaced. DISCHARGE MEDICATIONS: 1. Acetaminophen 325 mg 2 tablets every 4 hours p.r.n. pain. 2. Acetaminophen 650 mg p.o. twice daily. 3. Norvasc 10 mg p.o. q.h.s., #30 given, no refills. 4. ASA 81 mg daily. 5. Simvastatin 10 mg p.o. q.h.s. 6. Labetalol 200 mg p.o. twice daily. 7. Nortriptyline 50 mg p.o. q.h.s. 8. Olanzapine 2.5 mg p.o. q.h.s. 9. Prednisone 3 mg p.o. daily. 10. Xarelto 15 mg p.o. q.h.s. 11. Calcium carbonate with vitamin D 1 tablet p.o. daily. 12. Ursodiol 250 mg p.o. t.i.d. 13. Nitrostat 0.4 mg sublingually every 5 minutes p.r.n. chest pain. 14. Vitamin D 2000 units p.o. daily. 15. Milk of mag 30 mL p.o. daily p.r.n. constipation. 16. Hydrochlorothiazide 25 mg p.o. daily. 17. Meclizine 25 mg p.o. q.8 h. p.r.n. dizziness. 18. Medications held are Cozaar 100 mg p.o. daily. HOSPITAL COURSE: Please refer to the admitting H and P for more detailed outline of the patient's presentation that was dictated by Dr. Aragon. The patient was admitted on 10/28/2016. She was placed on Med/Surg Unit. She was placed on fall precautions. Psychiatry was asked to consult given the patient's depression and loss of will to eat or drink. The patient was hydrated initially with normal saline and then followed with continuous IV PATIENT'S NAME: CINDY REYES [facility] AGE: 85 Y [address] ROOM: [place] [address] [place] [facility] ADMIT DATE: 10/30/2016 Discharge Summary DISCHARGE DATE: 11/01/2016 FAMILY PHYSICIAN: Alberto Fofana MD ATTENDING PHYSICIAN: Scott Aragon. She was continued on her Xarelto for her history of PAF. Given her WES, the losartan was held along with the hydrochlorothiazide. Norvasc was implemented. On 10/29/2016, the normal saline was discontinued and bicarb was initiated to help with her hydration status. Electrolytes were being monitored, meclizine was used initially to help with her vertigo, and was seen to improve as her kidney function improved and she received her hydration. Hydralazine was used to help manage her hypertension. The patient had had a Stroud catheter placed for accurate I's and O's and this was discontinued on 10/30/2016. The patient did have OT/PT follow her and work with her during her inpatient stay. The patient's metabolic acidosis resolved. She did receive some magnesium sulfate for a low magnesium of 1.5 and this was given on 10/31/2016, potassium did drop to 3.6, of which this was replaced with oral replacement. Ultimately, all things considered, the patient was cleared to be discharged medically on 11/01/2016. Her blood pressures during her hospitalization ranged from systolically 108 to a nice later reading of 205, but mostly settled in the 140s to 160s range. I did speak with Dr. Rosales on the day of discharge, she was willing to see the patient as early as next week, he will be calling the patient to make this arrangement with a time. I also spoke with Dr. Fofana who will graciously see the patient on Sunday, November 03, 2016 with a check of a BMP at that point to see how things are coming along and to also monitor her blood pressure. I also took time to call both her daughter Gloria Lmi and I discussed her discharge plan with her and also left a voicemail with her son Red. I visited with Care Management to make sure that PT/OT could be available for Mrs. Reyes in her assisted living situation and script was written for this. I recommend she follow up with fall precautions. The patient is being discharged back to the [facility] facility at [facility]. Discharge of this patient took greater than 35 minutes and included educating the patient, the patient's family, and collaborating with her primary care physician and our psychiatric colleagues concerning her case. MELODY SAUCEDA PA-C FOR MD JEFFRY BAL/shanique /[id number] CC: Alberto Fofana MD PATIENT'S NAME: CINDY REYES [facility] AGE: 85 Y [address] ROOM: [place] [address] [place] [facility] [place]MIT DATE: 10/30/2016 Discharge Summary DISCHARGE DATE: 11/01/2016 FAMILY PHYSICIAN: Alberto Fofana MD ATTENDING PHYSICIAN: Scott Aragon MD d: 11/02/16 0134 t: 11/20/16 1200, DISCHARGE SUMMARY
--- NOTE | ~2016-10-28 | HP ---
PATIENT'S NAME: CINDY PECK [facility] AGE: 85 Y [address] ROOM: [address]3214 [place], [place] [address] [place] [facility] [place]: 10[place] History & Physical DISCHARGE DATE: FAMILY PHYSICIAN: Alberto Fofana MD ATTENDING PHYSICIAN: JIM GLOVER DATE OF SERVICE: ADDENDUM: The patient seems depressed. The patient states that she does not want to eat and does not want to drink, and she wants to go back home to be with her . When asked who is her , I found out that her actually 2 years ago. The patient kept saying that she wants to go to be with her . I asked the patient if she has any ideation or thoughts about committing suicide or causing harm to herself, the patient replies "no," but the patient does want to go back and be where her is right now because she is tired of life, tired of being here alone, and tired of taking so many medications. She does feel very lonely and very depressed, and at one point, the patient did mention that she would like to be in the position where her is, and when asked her "you mean ," the patient says "yes." The patient has no desire to eat or drink because she is depressed. Given that the patient did make this suicidal ideation remark, I am going to put the patient on suicidal precaution, and consult Psychiatry for suicidal ideation. I have already spoken to the patient's son and daughter on the phone twice. The first time was to let her know about her mother's update and condition and kidney failure, and the second time was after the kidney function was checked again, which already showed improvement. Both son and daughter are aware that their mother is DNR/DNI, and said that her father 2 years ago, and she went in to severe depression. However, for the last year, she has been doing much better, but given that she lives alone here without many friends or without any family member, she is all alone here by herself. She is getting lonely. This is the reason why she is depressed. The plan will be a suicidal precaution and also psychiatric consult tomorrow. The patient's daughter and son are in agreement with the plan, and please have the psychiatrist to please call the patient's son and daughter to go over the evaluation plan and plan of care before making any changes to the medication. The patient's daughter is very concerned that if changing her antidepressant will cause change in mental status and cause delirium because when she was depressed last time, the patient went in to delirium and confusion when her antidepressant medication was changed. So please have the psychiatric call the patient's daughter and son before making any changes. PATIENT'S NAME: CINDY PECK [facility] AGE: 85 Y [address] ROOM: [place] [address] [place] [facility] [place]: 10[place]28/2016 History & Physical DISCHARGE DATE: FAMILY PHYSICIAN: Alberto Fofana MD ATTENDING PHYSICIAN: JIM GLOVER MD CC/modl /[id number] D: [id number] T: [id number] HISTORY & PHYSICAL
--- NOTE | ~2016-10-28 | CON ---
PATIENT'S NAME: TIA PECK [facility] AGE: 85 Y [address] ROOM: [id number] [place], [place] [address] LOCATION: [facility] ADMIT DATE: 10/28/2016 Consultation DISCHARGE DATE: FAMILY PHYSICIAN: Alberto Fofana MD ATTENDING PHYSICIAN: JIM GLOVER IDENTIFYING INFORMATION: Tia is an 85-year-old, white female, admitted to us yesterday with acute renal insufficiency. The medical issues are being evaluated. A Psych consult was obtained to assess for depression. CHIEF COMPLAINT: "I am doing okay, I guess." HISTORY OF PRESENT ILLNESS: Tia came across as a fairly animated, fully alert and oriented, good historian, and demonstrated full range of emotions. She talked about how she has struggled with depression since the of her two years ago. She sees Dr. Rosales, and currently takes Zyprexa 2.5 mg at bedtime. She has been living at a local Assisted Living Facility for the last one year, and enjoys being there. In terms of her recent symptoms, she feels that given the circumstances, that she is doing fairly okay. Frustrated about the medical issues that she is having, and the vertigo and the balance issues. She also hates "the fact that she has to be dependent upon other people, and cannot even clean herself," but understands that this is hopefully all temporary, and a lot of this should resolve once the medical issues get better as well. She states that she did have a bout of depression about 60 years ago, and that is when she remembers having ECTs. She was admitted to [facility] back then. After that, she did very well in terms of her mental health until two years ago, and that is when she lost her . She feels that Dr. Rosales has her on a regimen that is effective. She saw him about a month ago, and states that she has another appointment in the next few weeks as well. She denies any suicidal or homicidal ideations. Per the Staff, is calm and cooperative and animated; and no major behavioral concerns at this point as well. No elements of any psychosis. Some mild concerns with the cognition, but nothing was evident during the assessment. No manic symptomatology. No concerns around anxiety. The patient feels that before all this medical decompensations, that she was doing quite well. PSYCHIATRIC HISTORY: Outpatient treatment of depression. Once CBCTs and inpatient admission about 60 years ago. MEDICAL HISTORY: 1. Acute kidney insufficiency. PATIENT'S NAME: TIA PECK [facility] AGE: 85 Y [address] ROOM: [address] [place] [address] LOCATION: [facility] ADMIT DATE: 10/28/2016 Consultation DISCHARGE DATE: FAMILY PHYSICIAN: Alberto Fofana MD ATTENDING PHYSICIAN: JIM GLOVER 2. Hypertension. 3. Obesity. DRUG AND ALCOHOL HISTORY: She declines. PERSONAL AND SOCIAL HISTORY: Born and raised in [place]. She moved to [place] with her in 1957. passed on two years ago, and has been living at [facility] for the last one year and enjoys it. She has two children; son lives in [place] and daughter lives in [place]. She "feels like a burden," but understands that is not how they feel. MENTAL STATUS EXAMINATION: Alert and oriented, lying in her bed, animated with a lot of emotion and energy. Good eye contact. She enjoyed visiting. She talked about life in general, a good historian, and able to give a consistent and coherent account. She talked about life losses, especially the recent ones and how they have affected her, fairly rational and reasonable in what she had to say. Appropriate range of emotions at this time. No manic symptoms. No elements of any psychosis. She understands that she feels "low," and has been feeling low recently, but understands this is from the medical complications and the loss of function that she has temporarily witnessed and experienced. Attention and concentration were fair. Intelligent. Cognitive deficits were not seen. Working memory seemed to be intact. Judgment and insight are fair. DIAGNOSES: 1. Major depressive disorder, recurrent. 2. Acute renal insufficiency. 3. Obesity. 4. Hypertension. ASSESSMENT AND PLAN: The patient is fully alert and oriented. The current symptoms are likely triggered by the loss of function and the adjustment to the medical issues. Discussed the plan, and the patient does not want any medication adjustments at this time. She states that she has a followup appointment with Dr. Rosales, and once that she is out of the hospital and feeling baseline in regard to her physical health, we will better assess the psychiatric concerns. All of that seems fairly reasonable. No acute safety concerns. She may be discharged back to the Assisted Living from a psych standpoint when she is medically cleared. Please call with any specific concerns. PATIENT'S NAME: TIA PECK [facility] AGE: 85 Y [address] ROOM: [place] [address] LOCATION: [facility] ADMIT DATE: 10/28/2016 Consultation DISCHARGE DATE: FAMILY PHYSICIAN: Alberto Fofana MD ATTENDING PHYSICIAN: JIM GLOVER MD NELA [facility]IRCH[facility]/shanique /[id number] d: 10/29/162019 t: 10/30/16 1228, CONSULTATION REPORT
[~2016-10-28 07:03] MED LIST changes: -NORVASC10 MG PO
[2016-10-28 07:39] LABS: BASOPHIL % 0.4 %; EOSINOPHIL # 0.2 K/uL (0.0-0.5); EOSINOPHIL % 2.3 %; HEMATOCRIT 30.1 % (30.0-46.0); HEMOGLOBIN 9.1 g/dL (10.0-15.0); IMMATURE GRANULOCYTE % 0.6 %; LYMPHOCYTE # 0.7 K/uL (0.8-4.0); LYMPHOCYTE % 9.6 %; MCH 27.9 pg (27.0-34.0); MCHC 30.2 gm/dL (32.0-36.5); MCV 92.3 fl (83.0-98.0); MONOCYTE # 0.8 K/uL (0.0-1.0); MONOCYTE % 12.1 %; MPV 10.4 fl (9.4-12.4); NEUTROPHIL # (ANC) 5.1 K/uL (1.8-7.8); NRBC % 0 /100WBC (0-0.00); PLATELET COUNT 244 K/uL (150-450); RBC 3.26 M/uL (3.00-5.00); RDW-CV 15.7 % (11.9-14.6); WBC 6.9 K/uL (4.0-11.0)
[2016-10-28 07:42] LABS: INR - (THERAPEUTIC) 1.23 (0.92-1.07); PROTIME 12.9 SECONDS (9.8-11.4)
[2016-10-28 07:54] LABS: ALBUMIN 3.6 gm/dL (3.5-5.0); ALK PHOS 61 IU/L (33-138); ALT 14 IU/L (12-78); ANION GAP 12.9 (10.0-19.0); AST 12 IU/L (10-40); CALCIUM 8.7 mg/dL (8.5-10.5); CHLORIDE 108 mMol/L (96-110); CO2 24 mMol/L (22-32); CPK 129 IU/L (21-215); POTASSIUM 3.9 mMol/L (3.7-5.1); SODIUM 141 mMol/L (135-145); TOTAL PROTEIN 6.6 g/dL (6.0-8.4)
[2016-10-28 07:56] LABS: BLOOD UREA NITROGEN 45 mg/dL (6-24)
[2016-10-28 07:57] LABS: CREATININE 3.5 mg/dL (0.5-1.1); ESTIMATED GFR (MDRD EQUATION) 12; TOTAL BILIRUBIN 0.3 mg/dL (0.0-1.5)
[2016-10-28 10:47] LABS: BLOOD URINE 150 /UL (NEGATIVE); COLOR URINE YELLOW (YELLOW); GLUCOSE URINE NEGATIVE (NEGATIVE); KETONE URINE NEGATIVE (NEGATIVE); LEUKOCYTES URINE 500 /UL (NEGATIVE); NITRITE URINE NEGATIVE (NEGATIVE); PROTEIN URINE NEGATIVE (NEGATIVE); SPEC GRAVITY URINE 1.025 (1.003-1.035); TURBIDITY URINE CLEAR (CLEAR); UROBILINOGEN URINE NORMAL (NORMAL)
[2016-10-28 10:55] LABS: RBC URINE 20-50 #/HPF (NEGATIVE); WBC URINE 50-100 #/HPF (NEGATIVE)
[2016-10-28 10:56] LABS: AMORPHOUS URINE 3+ (NEGATIVE); BACTERIA URINE NEGATIVE (NEGATIVE); EPITHELIAL URINE NEGATIVE #/HPF (NEGATIVE); MUCUS URINE 1+ (NEGATIVE)
[2016-10-28 12:14] LABS: BILIRUBIN URINE NEGATIVE (NEGATIVE); BLOOD URINE 50 /UL (NEGATIVE); COLOR URINE YELLOW (YELLOW); GLUCOSE URINE NEGATIVE (NEGATIVE); KETONE URINE NEGATIVE (NEGATIVE); LEUKOCYTES URINE 25 /UL (NEGATIVE); NITRITE URINE NEGATIVE (NEGATIVE); PROTEIN URINE 15 mg/dL (NEGATIVE); SPEC GRAVITY URINE 1.025 (1.003-1.035); TURBIDITY URINE 1+ (CLEAR); UROBILINOGEN URINE NORMAL (NORMAL)
[2016-10-28 12:29] LABS: BACTERIA URINE NEGATIVE (NEGATIVE); EPITHELIAL URINE NEGATIVE #/HPF (NEGATIVE); MUCUS URINE 1+ (NEGATIVE); RBC URINE 20-50 #/HPF (NEGATIVE)
[2016-10-28 19:49] LABS: ANION GAP 10.3 (10.0-19.0); CALCIUM 8.1 mg/dL (8.5-10.5); CREATININE 2.2 mg/dL (0.5-1.1); POTASSIUM 4.3 mMol/L (3.7-5.1)
[2016-10-29 02:26] LABS: CALCIUM 7.8 mg/dL (8.5-10.5); CREATININE 1.7 mg/dL (0.5-1.1); POTASSIUM 4.3 mMol/L (3.7-5.1)
[2016-10-29 02:27] LABS: ANION GAP 11.3 (10.0-19.0)
[2016-10-30 05:44] LABS: ALBUMIN 2.8 gm/dL (3.5-5.0); ANION GAP 10.8 (10.0-19.0); CALCIUM 8.3 mg/dL (8.5-10.5); CREATININE 1.1 mg/dL (0.5-1.1); POTASSIUM 3.8 mMol/L (3.7-5.1)
[2016-10-30 05:47] LABS: PHOSPHORUS 1.9 mg/dL (2.5-4.9)
[2016-10-31 05:35] LABS: ANION GAP 7.6 (10.0-19.0); CALCIUM 8.4 mg/dL (8.5-10.5); CREATININE 1.1 mg/dL (0.5-1.1); POTASSIUM 3.6 mMol/L (3.7-5.1)
[2016-11-01 06:22] LABS: ANION GAP 10.1 (10.0-19.0); CALCIUM 9.1 mg/dL (8.5-10.5); CREATININE 1.2 mg/dL (0.5-1.1); POTASSIUM 4.1 mMol/L (3.7-5.1)
[2016-11-01] MEDS ORDERED: NORVASC10 MG PO (15:23)
== END 2016-11-01 16:09 | disposition other institution (70) | DRG 683 ==
LOC: GMED 07:03 → GMSU 09:01
PROVIDERS: Emergency Medicine; Internal Medicine; Physician Assistant; ADMIT Internal Medicine
DX: N17.9 Acute kidney failure, unspecified (principal); R45.851 Suicidal ideations; I48.2 Chronic atrial fibrillation; E86.0 Dehydration; F32.9 Major depressive disorder, single episode, unspecified; I10 Essential (primary) hypertension; E83.42 Hypomagnesemia; Z78.1 Physical restraint status; E78.5 Hyperlipidemia, unspecified; E66.9 Obesity, unspecified; F41.9 Anxiety disorder, unspecified; N28.9 Disorder of kidney and ureter, unspecified; D50.9 Iron deficiency anemia, unspecified; E87.6 Hypokalemia; I16.0 Hypertensive urgency; M35.3 Polymyalgia rheumatica
CPT/HCPCS: G0378; J1170; J1644; J3360; J3475; J7030; J7050

== ENCOUNTER → 2016-10-28 | Outpatient (CLI) | payer MEDICARE, OTHER ==
[~2016-10-28] MED LIST changes: +HYDRODIURIL25 MG PO; +MECLIZINE HCL25 MG PO; +NORTRIPTYLINE H50 MG PO; +NORVASC10 MG PO; +PREDNISONE1 MG PO
== END | disposition disaster alternative care site (69) ==
LOC: GAMB 06:40
DX: R42 Dizziness and giddiness (principal); I10 Essential (primary) hypertension; Z79.899 Other long term (current) drug therapy; Z88.0 Allergy status to penicillin
CPT/HCPCS: A0422; A0425; A0429